=== PATIENT | male | born 1975 | race Caucasian/White ===

== ENCOUNTER 2017-11-07 13:31 | Emergency (ER) | payer OTHER ==
[2017-11-07 14:25] LABS: BASOPHILS % (AUTO) 0.5 %; EOSINOPHILS # (AUTO) 0.1 10^3/uL (0.0-0.7); EOSINOPHILS % (AUTO) 0.7 %; HGB - HEMOGLOBIN 17.6 g/dL (14.0-18.0); LYMPHOCYTES # (AUTO) 1.1 10^3/uL (1.5-3.5); MEAN CORPUSCULAR HEMOGLOBIN 28.1 pg (27.0-31.0); MEAN CORPUSCULAR HGB CONC 33.9 g/dL (32.0-36.0); MEAN PLATELET VOLUME 9.5 fL (7.4-11.4); MONOCYTES # (AUTO) 0.3 10^3/uL (0.0-1.0); MONOCYTES % (AUTO) 3.3 %; NEUTROPHILS # (AUTO) 7.1 10^3/uL (1.5-6.6); NEUTROPHILS % (AUTO) 82.5 %; PLT - PLATELET COUNT 113 10^3/uL (130-450); RED BLOOD COUNT 6.24 10^6/uL (4.70-6.10); RED CELL DISTRIBUTION WIDTH 13.4 % (12.0-15.0); WHITE BLOOD COUNT 8.6 x10^3/uL (4.8-10.8)
[2017-11-07 14:38] LABS: ALBUMIN 4.6 g/dL (3.2-5.5); ALBUMIN/GLOBULIN RATIO 1.6 (1.0-2.2); CALCIUM 9.5 mg/dL (8.5-10.3); CREATININE 1.4 mg/dL (0.6-1.2); TOTAL PROTEIN 7.4 g/dL (6.7-8.2)
[2017-11-07] MEDS ORDERED: SODIUM CHLORIDE 0.9% 1,000 ML IV ONE (15:29)
[2017-11-07] MEDS ORDERED: ONDANSETRON 4 MG/2 ML VIAL IVP STA (15:29)
[2017-11-07] MEDS ORDERED: cefTRIAXone 1 GM in SODIUM CHLORIDE 0.9% MINIBAG 100 ML IV STA (15:30)
[2017-11-07] MEDS ORDERED: diazePAM INJ 5 MG/ML SYRINGE IVP STA (15:30)
--- NOTE | 2017-11-07 15:33 | ED Physician Documentation ---
History of Present Illness - Stated complaint Stated Complaint: DIZZY - Chief complaint Chief Complaint: General - History obtained from History obtained from: Patient - History of Present Illness Timing: Other (He has recurrent vertigo and ear infections. He developed vertigo this morning, not related to moving the head with ear fullness on the right and loss of hearing. He has had ear tubes as an adult. He has been vomiting.) Review of Systems Constitutional: denies: Fever, Chills Ears: reports: Loss of hearing, Ear pain. denies: Drainage/discharge Nose: reports: Congestion. denies: Rhinorrhea / runny nose, Sinus pressure / pain Throat: denies: Oral lesions / sores, Sore throat PD PAST MEDICAL HISTORY - Past Medical History Past Medical History: Yes - Present Medications Home Medications: Ambulatory Orders Medication Instructions Recorded Confirmed Amox/Clav 875/125 [Augmentin] 1 each PO Q12H #20 tablet 11/07/17 Ondansetron HCl [Zofran] 4 mg PO Q6H PRN #10 tablet 11/07/17 - Allergies Allergies/Adverse Reactions: Allergies Allergy/AdvReac Type Severity Reaction Status Date / Time cephalexin [From Keflex] Allergy Unknown Verified 11/07/17 13:48 meperidine [From Demerol] Allergy Unknown Verified 11/07/17 13:48 - Social History Does the pt smoke?: No Smoking Status: Never smoker PD ED PE NORMAL - Vitals Vital signs reviewed: Yes - General General: Alert and oriented X 3, No acute distress - HEENT HEENT: PERRL, Other (He has a lazy eye on the right but no diplopia and otherwise extraocular movements are intact, he does have a bad right otitis media.) - Neck Neck: Supple, no meningeal sign, No bony TTP - Cardiac Cardiac: RRR, No murmur - Respiratory Respiratory: No respiratory distress, Clear bilaterally - Abdomen Abdomen: Non tender - Neuro Neuro: Alert and oriented X 3, study specialist 2-12 intact, Other (Normal finger to nose testing) Eye Opening: Spontaneous Motor: Obeys Commands Verbal: Oriented GCS Score: 15 - Psych Psych: Normal mood, Normal affect Results - Vitals Vitals: Vital Signs - 24 hr 11/07/17 11/07/17 13:44 16:49 Temperature 36.6 C Heart Rate 72 70 Respiratory 20 14 Rate Blood Pressure 130/97 H 128/78 O2 Saturation 100 100 Oxygen O2 Source Room air - EKG (time done) 1341 Rate: Rate (enter#) (75) Rhythm: NSR [place]: Normal Intervals: Normal SD QRS: Normal Ischemia: Normal ST segments Computer interpretation: Agree with computer - Labs Labs: Laboratory Tests 11/07/17 11/07/17 14:18 14:18 WBC 8.6 RBC 6.24 H Hgb 17.6 Hct 51.8 MCV 83.0 MCH 28.1 MCHC 33.9 RDW 13.4 Plt Count 113 L MPV 9.5 Neut # 7.1 H Lymph # 1.1 L Frio # 0.3 Eos # 0.1 Baso # 0.0 Absolute Nucleated RBC 0.02 Nucleated RBC % 0.2 Sodium 136 Potassium 4.2 Chloride 103 Carbon Dioxide 25 Anion Gap 8.0 BUN 20 Creatinine 1.4 H Estimated GFR (MDRD) 56 L Glucose 115 H Calcium 9.5 Total Bilirubin 1.0 AST 39 ALT 76 H Alkaline Phosphatase 62 Total Protein 7.4 Albumin 4.6 Globulin 2.8 Albumin/Globulin Ratio 1.6 Lipase 50 PD MEDICAL DECISION MAKING - ED course ED course: He prior is not presents with recurrent peripheral vertigo associated with right otitis media. There is no evidence of sepsis despite this being his concern. His white count and vital signs are unremarkable. He is treated with Zofran, Rocephin, and Valium and IV fluids here. Note made of the Keflex allergy, it was a rash when he was a child, he has had Keflex since without ill effect. Departure - Departure Disposition: 01 Home, Self Care Clinical Impression: Vertigo ROM (right otitis media) Qualifiers: Otitis media type: suppurative Chronicity: acute Recurrence: recurrent Spontaneous tympanic membrane rupture: without spontaneous rupture Qualified Code(s): H66.004 - Acute suppurative otitis media without spontaneous rupture of ear drum, recurrent, right ear Condition: Good Record reviewed to determine appropriate education?: Yes Instructions: ED Otitis Media Acute Adult, ED Vertigo Unspecified Prescriptions: Amox/Clav 875/125 [Augmentin] 1 each PO Q12H #20 tablet Ondansetron HCl [Zofran] 4 mg PO Q6H PRN #10 tablet PRN Reason: Nausea / Vomiting Comments: As discussed, you should follow-up with an ear nose and throat physician, the closest is in [place], the number is [phone]. Return if worse. Discharge Date/Time: 11/07/17 16:52
[2017-11-07 16:52] VITALS: BP 128/78
== END 2017-11-07 16:52 | disposition home or self-care (01) ==
LOC: ED 13:31
DX: R42 Dizziness and giddiness (principal); H66.004 Acute suppurative otitis media without spontaneous rupture of ear drum, recurrent, right ear
CPT/HCPCS: 36415; 80053; 83690; 85025; 93005; 96374; 96375; 99283

== ENCOUNTER 2018-05-27 12:41 | Outpatient (CLI) | payer OTHER ==
[2018-05-27] MEDS ORDERED: GADOBUTROL 10 MMOL/10 ML VIAL ONE (12:46)
[2018-05-27] MEDS ORDERED: GADOBUTROL 10 MMOL/10 ML VIAL IVP ONE (13:53)
--- NOTE | 2018-05-29 13:06 | MRI Report ---
Procedure Date: 05/27/2018 Accession Number: [id number] / [id number] Procedure: MRI - Brain W/WO CPT Code: FULL RESULT: EXAM: MRI BRAIN AND INTERNAL AUDITORY CANAL (IAC),WITHOUT AND WITH CONTRAST. EXAM DATE: 05/27/2018 01:37 PM. CLINICAL HISTORY: DIZZINESS AND GIDDINESS. COMPARISON: None. TECHNIQUE: Multiplanar, multisequence T1-weighted and fluid-sensitive MRI sequences of the brain and IACs were performed. Other: None. IV Contrast: 10 cc GADAVIST. FINDINGS: Brain Volume: Normal for age. Parenchyma/Dura: No acute parenchymal hemorrhage, mass, or midline shift.There is minimal bilateral areas of T2/FLAIR signal hyperintensity seen predominantly involving the peripheral white matter of the frontal lobes. No areas of restricted diffusion seen to suggest acute infarct. No abnormal enhancement. Internal Auditory Canals (IACs): Normal. No cranial nerve lesion or inflammatory process identified. The inner ear structure are symmetric and unremarkable. Ventricles/Cisterns: No hydrocephalus. No abnormal extra-axial fluid collection or hemorrhage. Orbits: Symmetric and unremarkable. Sella Turc[place]: The pituitary gland, cavernous sinuses, suprasellar cistern and optic chiasm are unremarkable. Vasculature: Normal signal flow void is seen in the major arterial structures at the skull base. The dural sinuses are patent and enhance normally. Sinuses: No acute sinus disease. Bones: No focal pathologic appearing marrow signal changes. Other: None. IMPRESSION: 1. Cerebellopontine angles and internal auditory canals are clear with no definite mass or masslike enhancement seen. 2. No acute infarct, intracranial hemorrhage, mass, hydrocephalus, midline shift, or abnormal postcontrast enhancement. 3. There are a few scattered white matter changes seen predominantly involving the peripheral white matter of the frontal lobes. Findings are nonspecific but may represent sequela of prior migraines. [facility]
== END 2018-05-27 12:42 | disposition home or self-care (01) ==
LOC: DI 12:41
PROVIDERS: ATTEND Family Medicine
DX: R42 Dizziness and giddiness (principal)
CPT/HCPCS: 70553; A9585